=== PATIENT | female | born 1965 | race Hispanic/Latino ===

== ENCOUNTER 2022-09-05 14:59 | Outpatient (CLI) | payer BC | END 2022-09-05 15:00 | disposition home or self-care (01) | LOC: CSHMRI 14:59 | PROVIDERS: ATTEND Specialist | DX: M54.12 Radiculopathy, cervical region (principal); M50.321 Other cervical disc degeneration at C4-C5 level; M50.222 Other cervical disc displacement at C5-C6 level | CPT/HCPCS: 72141 ==